=== PATIENT | female | born 1955 | race African-American/Black ===

== ENCOUNTER 2021-12-04 13:08 | Emergency (ER) | payer OTHER, MEDICAID ==
[~2021-12-04] VITALS: Ht 170.2 cm; Wt 63.5 kg
[2021-12-04 13:23] VITALS: BP 103/63
--- NOTE | 2021-12-04 13:29 | NUR ---
PT W/C ASSISTED TO BED 11.
--- NOTE | 2021-12-04 14:30 | NUR ---
valeria at bedside for pt assessment
--- NOTE | 2021-12-04 14:32 | NUR ---
65 y/o female bib self from home, pt presents to ed with right foot pain after injury 2 days ago. pt states she was bowling and someone stepped on her foot to attempt to stop the fall. pt has skin tear that has started to having swelling and increase in size. denies sob, fever, chest pain, abd pain, cough, n/v/d. a&ox4, states she is unable to ambulate at this time. pmh: htn nka med: denies
[2021-12-04] MEDS ORDERED: NACL 0.9% 1,000 ML IV ONE (14:40)
--- NOTE | 2021-12-04 14:44 | NUR ---
pt requested wheelchair assist to bathroom at this time
--- NOTE | 2021-12-04 15:08 | NUR ---
urine collected by lab at bedside by phleb
--- NOTE | 2021-12-04 15:10 | NUR ---
pt given ham sandwhich, sugar free jello and crackers per request
[2021-12-04 15:17] LABS: BASOPHILS # (AUTO) 0.1 K/uL (0.00-0.22); BASOPHILS % (AUTO) 0.9 % (0.0-2.0); EOSINOPHILS # (AUTO) 0.1 K/uL (0-0.4); EOSINOPHILS % (AUTO) 1.8 % (0.0-4.0); HEMATOCRIT 32.7 % (36-48); HEMOGLOBIN 10.8 g/dL (12.0-16.0); LYMPHOCYTES # (AUTO) 1.4 K/uL (2.5-16.5); LYMPHOCYTES % (AUTO) 19.4 % (20.5-51.1); MEAN CORPUSCULAR HEMOGLOBIN 30 pg (27-31); MEAN CORPUSCULAR HGB CONC 33 g/dL (33-37); MEAN CORPUSCULAR VOLUME 90.1 fL (80-94); MONOCYTES # (AUTO) 0.9 K/uL (0.8-1.0); MONOCYTES % (AUTO) 12.3 % (1.7-9.3); NEUTROPHILS # (AUTO) 4.7 K/uL (1.8-7.7); NEUTROPHILS % (AUTO) 65.6 % (42.2-75.2); PLATELET COUNT (AUTO) 404 K/uL (140-450); RED BLOOD CELL COUNT(AUTO) 3.62 MIL/uL (4.20-5.40); RED CELL DISTRIBUTION WIDTH 13.2 % (11.6-13.7); WHITE BLOOD COUNT (AUTO) 7.2 K/uL (4.8-10.8)
[2021-12-04 15:49] LABS: ALBUMIN 3.2 g/dL (3.4-5.0); ANION GAP 13.7 (8-16); CARBON DIOXIDE 28.3 mmol/L (21-32); CREATININE 1.2 mg/dL (0.6-1.3); TOTAL BILIRUBIN 0.3 mg/dL (0.0-1.0)
[2021-12-04 16:05] LABS: APPEARANCE,URINE CLEAR (CLEAR); BILIRUBIN,URINE NEGATIVE (NEGATIVE); BLOOD, URINE TRACE-I (NEGATIVE); COLOR,URINE YELLOW (YELLOW); LEUKOCYTE ESTERASE ,URINE 2+ (NEGATIVE); NITRITE, URINE NEGATIVE (NEGATIVE); UGLUCOSE NEGATIVE (NEGATIVE)
[2021-12-04] MEDS ORDERED: CLINDAMYCIN 900 MG in DEXTROSE 5% 100 ML IV ONE (16:30)
[2021-12-04] MEDS ORDERED: ceFAZolin 1,000 MG VIAL ONE (17:04)
[2021-12-04] MEDS ORDERED: CLINDAMYCIN 900 MG/6 ML VIAL IV ONE (17:05)
--- NOTE | 2021-12-04 17:15 | NUR ---
pt wheelchair assisted to bathroom at this time via wheelchair
[2021-12-04] MEDS ORDERED: CEPH-588 PO (17:38)
[2021-12-04] MEDS ORDERED: CLIN-223 PO (17:38)
[2021-12-04] MEDS ORDERED: BACTO TP (17:38)
[2021-12-04] MEDS ORDERED: BACITRACIN OINT 500 UNITS/GM PKT TP ONE ×3 (17:42→17:45)
--- NOTE | 2021-12-04 17:44 | NUR ---
prt requesting to leave at this time. ama signed at this time, pt has spoken with md shaw
[2021-12-04 17:47] LABS: RBC,URINE NONE SEEN /HPF (0-5); TRICHOMONAS,URINE None Seen /HPF (None Seen); YEAST,URINE None Seen /HPF (None Seen)
[2021-12-04 17:52] VITALS: BP 103/63
--- NOTE | 2021-12-04 17:52 | NUR ---
Patient discharged with v/s stable. Written and verbal after care instructions given and explained. Patient alert, oriented and verbalized understanding of instructions. Wheel Chair Assisted with friend to car. All questions addressed prior to discharge. ID band removed. Patient advised to follow up with PMD. Rx of clindamycin, keflex, bactroban (script) given. Patient educated on indication of medication including possible reaction and side effects. Opportunity to ask questions provided and answered.
== END 2021-12-04 17:30 | disposition left against medical advice (07) ==
LOC: MED 13:08
DX: S91.311A Laceration without foreign body, right foot, initial encounter (principal); L03.115 Cellulitis of right lower limb; I10 Essential (primary) hypertension; Z79.2 Long term (current) use of antibiotics; W50.0XXA Accidental hit or strike by another person, initial encounter; Y92.89 Other specified places as the place of occurrence of the external cause; Y93.89 Activity, other specified; Y99.8 Other external cause status
CPT/HCPCS: 36415; 73610; 73630; 80053; 81001; 83605; 85025; 85651; 86140; 87040; 87086; 93971; 96361; 96365; 99285; J0690; Q0092; J3490; J7030